=== PATIENT | male | born 1975 | race African-American/Black ===

== ENCOUNTER → 2017-04-18 | Outpatient (CLI) | payer OTHER | END | disposition home or self-care (01) | LOC: EMPHLTH 11:31 | PROVIDERS: ATTEND Internal Medicine | DX: Z02.1 Encounter for pre-employment examination (principal) | CPT/HCPCS: 86706; 86735; 86762; 86765; 86787 ==

== ENCOUNTER 2018-02-09 12:31 | Emergency (ER) | payer OTHER ==
[~2018-02-09] VITALS: Ht 180.3 cm; Wt 70.5 kg
[2018-02-09 13:44] VITALS: BP 144/90
== END 2018-02-09 13:56 | disposition home or self-care (01) ==
LOC: EMS 12:32
DX: I51.7 Cardiomegaly (principal); I10 Essential (primary) hypertension
CPT/HCPCS: 93005; 99283